=== PATIENT | male | born 1965 | race Caucasian/White ===

== ENCOUNTER 2017-06-19 08:16 | Day surgery (SDC) | payer BC ==
[~2017-06-19 08:16] MED LIST: NEXIUM40 MG PO
--- NOTE | 2017-06-19 10:38 | Operative Note ---
Upper GI Endoscopy Procedure date: 06/19/17 Date of : 61 Procedure:Upper GI Endoscopy Esophagogastroduodenoscopy with cold biopsies Indications: Mr. Peters is a 51-year-old gentleman who is here for screening/surveillance upper endoscopy. He did have shoemaker endoscopy with Dr. Mendoza Pineda 3 years ago. 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 He also had adenomatous colon polyps. It was recommended that he have repeat surveillance upper endoscopy and colonoscopy in 3 years. He does state that his father had esophageal cancer in his mid 60s. The patient does have a history of gastroesophageal reflux disease which is well controlled with Nexium 20 mg by mouth daily. The patient reports no heartburn, reflux, indigestion, dyspepsia or dysphagia. Performing Provider: Eleonora Hidalgo MD Referring Provider: Suman Moran M.D. Sedation: Fentanyl 150 mg IV/Versed 7 mg IV Procedure: Prior to the procedure, a history and physical exam was performed, and patients medications and allergies were reviewed. The risks and benefits of the procedure and the sedation options and risks were discussed with the patient. All questions were answered and informed consent was obtained. The patient was brought to the procedure room. Patient identification and proposed procedure were verified by the physician and the nurse. The patient was placed in a left lateral decubitus position and the scope was passed under direct vision. Throughout the procedure, the patient's blood pressure, pulse, and oxygen saturations were monitored continuously. The endoscope was introduced through the mouth, and advanced to the second part of duodenum. The upper GI endoscopy was accomplished without difficulty. The patient tolerated the procedure well. Findings: The scope was passed directly into the upper esophagus and advanced to the third portion of the duodenum. The post bulbar duodenum and duodenal bulb were normal with normal mucosa and conniventes. The scope was withdrawn through a normal duodenal bulb and pylorus into the stomach. There was some mild linear reactive gastritis of the antrum. The remainder of the antrum, body and fundus of the stomach were grossly normal. Upon retroflexion there was a small 2 cm hiatal hernia. 2 biopsies were taken in the antrum and along the lesser curvature for histology. The scope was then withdrawn into the esophagus. There was a single tongue of salmon-colored mucosa that extended 1-1.5 cm and was biopsied. Narrow band imaging/NBI did not show evidence of dysplasia. Multiple biopsies were taken from this tongue of mucosa. There was no evidence of reflux esophagitis or strictures. Immediate complications: None EBL (ml): 0 Impression: 1. Short segment Buchanan's esophagus 2. Small 2 cm hiatal hernia 3. Very mild linear reactive gastritis Recommendations: I will follow up the biopsies. If there is no evidence of dysplasia, I would recommend repeat surveillance upper endoscopy in 5 years for short segment Ubchanan's esophagus. I would continue low dose Nexium 20 mg by mouth daily. I will proceed with surveillance colonoscopy. at 1037
--- NOTE | 2017-06-19 10:43 | Operative Note ---
Colonoscopy ([place]) Procedure date: 06/19/17 Date of : 61 Procedure:Colonoscopy Colonoscopy with cold snare polypectomy Indications: Mr. Peters is a 51-year-old gentleman who is here for follow-up screening/ surveillance colonoscopy. The patient did have a colonoscopy performed by Dr. Mendoza Pineda M.D. in January 2014 at which time he had a single polyp (tubular adenoma ) removed from the cecum. The patient reports no abdominal pain, weight loss, change in his bowel habits or rectal bleeding. He reports no family history of colon cancer. Performing Provider: Eleonora Hidalgo MD Referrring Provider: Suman Moran M.D. Sedation: Fentanyl 200 mg IV/Versed 11 mg IV (combined sedation for both EGD and colonoscopy). Procedure: Prior to the procedure, a history and physical exam was performed, and patient medications and allergies were reviewed. The risks and benefits of the procedure and the sedation options and risks were discussed with the patient. All questions were answered and informed consent was obtained. Patient identification and proposed procedure were verified by the physician and the nurse. The patient was placed in a left lateral decubitus position. Throughout the procedure, the patient's blood pressure, pulse, and oxygen saturations were monitored continuously. Findings: On digital rectal examination there was normal rectal tone. There were no external hemorrhoids. The prostate was mildly firm with potential lower midline nodule on the lower margin of the prostate. The colonoscope was introduced through the anal canal to the rectum and advanced to the cecum. The ileocecal valve and appendiceal orifice were identified. The scope was advanced a short distance into the ileum which appeared grossly normal. The scope was then withdrawn into the colon. The cecum, ascending and transverse colon and mucosa were grossly normal. There was a single 6 mm polyp in the descending colon removed via cold snare polypectomy. There were scattered diverticuli throughout the descending and sigmoid colon (LEFT colon). The rectum itself was normal. Upon retroflexion within the rectum there were grade 1 internal hemorrhoids. Impressions: 1. Descending colon polyp 2. Left-sided diverticulosis 3. Grade 1 internal hemorrhoids 4. Mild prostate firmness with lower midline nodule or cyst Recommendations: I will follow up the polyp pathology and recommend repeat colonoscopy again in 5 years based upon the polyp histology. I would encourage fiber supplementation on a long-term daily maintenance basis. I will inquire about prior PSA testing and possible urologic consultation. Complications: None EBL (ml): 0 at 1519
[2017-06-19 13:49] VITALS: BP 115/70
== END 2017-06-19 11:43 | disposition home or self-care (01) ==
LOC: SDC 08:16
PROVIDERS: Internal Medicine Gastroenterology
PROC: 0DB78ZX Excision of Stomach, Pylorus, Via Natural or Artificial Opening Endoscopic, Diagnostic (ICD-10-PCS; 2017-06-19)
PROC: 0DB68ZX Excision of Stomach, Via Natural or Artificial Opening Endoscopic, Diagnostic (ICD-10-PCS; 2017-06-19)
PROC: 0DBM8ZX Excision of Descending Colon, Via Natural or Artificial Opening Endoscopic, Diagnostic (ICD-10-PCS; 2017-06-19)
PROC: 0DB58ZX Excision of Esophagus, Via Natural or Artificial Opening Endoscopic, Diagnostic (ICD-10-PCS; principal; 2017-06-19 09:30)
DX: Z09 Encounter for follow-up examination after completed treatment for conditions other than malignant neoplasm (principal); Z86.010 Personal history of colon polyps; Z80.0 Family history of malignant neoplasm of digestive organs; K44.9 Diaphragmatic hernia without obstruction or gangrene; K22.70 Barrett's esophagus without dysplasia; K57.30 Diverticulosis of large intestine without perforation or abscess without bleeding; K64.0 First degree hemorrhoids; N40.2 Nodular prostate without lower urinary tract symptoms; K21.0 Gastro-esophageal reflux disease with esophagitis; K29.50 Unspecified chronic gastritis without bleeding; D12.4 Benign neoplasm of descending colon; Z79.82 Long term (current) use of aspirin; Z79.899 Other long term (current) drug therapy